=== PATIENT | male | born 1985 | race Caucasian/White ===

== ENCOUNTER 2018-04-08 16:15 | Emergency (ER) | payer OTHER ==
[~2018-04-08] VITALS: Ht 190.5 cm; Wt 117.9 kg
[~2018-04-08 16:15] MED LIST: OXYC-133 PO; SOMA PO
--- NOTE | 2018-04-08 17:40 | NUR ---
Pt was not found in ER waiting room or outside ER.
--- NOTE | 2018-04-08 18:00 | NUR ---
Attempted to bring pt into ER again, pt was not found in ER lobby or outside ER.
== END 2018-04-08 18:03 | disposition left against medical advice (07) ==
LOC: ER 16:16
DX: Z53.21 Procedure and treatment not carried out due to patient leaving prior to being seen by health care provider (principal)
CPT/HCPCS: A4663

== ENCOUNTER 2018-11-29 22:14 | Emergency (ER) | payer OTHER ==
[~2018-11-29] VITALS: Ht 190.5 cm; Wt 122.5 kg
--- NOTE | 2018-11-29 22:35 | NUR ---
Pt ambulated to ER with steady gait and c/o left lower back pain radiating to left leg x 2 day and worse today. Pt is AAO x 4. Pt denies injury. VSS. Safe environment implemented.
--- NOTE | 2018-11-29 22:37 | NUR ---
Dr. Pierce at bedside for MSE
[2018-11-29] MEDS ORDERED: ONDANSETRON 4 MG/2 ML VIAL IM ONE (22:45)
[2018-11-29] MEDS ORDERED: HYDROMORPHONE 1 MG/1 ML DISP.SYRIN IM ONE (22:45)
[2018-11-29] MEDS ORDERED: ONDANSETRON 4 MG/2 ML VIAL ONE (22:47)
[2018-11-29] MEDS ORDERED: HYDROMORPHONE 2 MG/1 ML DISP.SYRIN ONE (22:47)
[2018-11-29 22:59] VITALS: BP 112/86
--- NOTE | 2018-11-29 22:59 | NUR ---
Patient discharged to home in stable conditon. Written and verbal after care instructions given. Patient verbalizes understanding of instructions. Patient instructed not to drive. All belongings taken.
== END 2018-11-29 22:59 | disposition home or self-care (01) ==
LOC: ER 22:15
DX: M54.42 Lumbago with sciatica, left side (principal)
CPT/HCPCS: 96372 ×2; 99283; J1170; J2405; A4663

== ENCOUNTER 2018-12-26 21:18 | Emergency (ER) | payer OTHER ==
[~2018-12-26] VITALS: Ht 190.5 cm; Wt 120.2 kg
[2018-12-26] MEDS ORDERED: OXYCODONE/APAP 5-325 MG TABLET PO ONE (22:00)
[2018-12-26] MEDS ORDERED: GABAPENTIN 300 MG CAPSULE PO ONE (22:00)
[2018-12-26] MEDS ORDERED: KETOROLAC TROMETHAMINE 30 MG INJ IM ONE (22:00)
[2018-12-26] MEDS ORDERED: KETOROLAC TROMETHAMINE 30 MG INJ ONE (22:07)
[2018-12-26] MEDS ORDERED: OXYCODONE/APAP 5-325 MG TABLET ONE (22:08)
[2018-12-26] MEDS ORDERED: GABAPENTIN 300 MG CAPSULE ONE (22:08)
--- NOTE | 2018-12-26 22:41 | NUR ---
Patient discharged to home in stable conditon. Written and verbal after care instructions given. Patient verbalizes understanding of instructions. Pt states he has friend to drive him home. All belongings with pt. VSS. Pt left ER in steady gait.
[2018-12-26 22:43] VITALS: BP 138/79
== END 2018-12-26 22:43 | disposition home or self-care (01) ==
LOC: ER 21:19
DX: M54.42 Lumbago with sciatica, left side (principal); F12.10 Cannabis abuse, uncomplicated
CPT/HCPCS: 96372; 99283; J1885; A4663

== ENCOUNTER 2019-04-19 10:36 | Emergency (ER) | payer OTHER ==
[~2019-04-19] VITALS: Ht 190.5 cm; Wt 122.5 kg
--- NOTE | 2019-04-19 10:45 | NUR ---
VIRAJ HILL AT BEDSIDE FOR MSE.
--- NOTE | 2019-04-19 10:51 | NUR ---
Patient discharged to home in stable conditon. Written and verbal after care instructions given. Patient verbalizes understanding of instructions. ALL BELONGINGS W/ PT. PT SELF-AMBULATED W/O DIFFICULTY.
[2019-04-19 10:52] VITALS: BP 133/86
== END 2019-04-19 10:54 | disposition home or self-care (01) ==
LOC: ER 10:36
DX: I88.9 Nonspecific lymphadenitis, unspecified (principal); J03.90 Acute tonsillitis, unspecified; H92.03 Otalgia, bilateral
CPT/HCPCS: A4663